=== PATIENT | female | born 1995 | race Caucasian/White ===

== ENCOUNTER 2021-09-27 20:16 | Emergency (ER) | payer OTHER ==
[2021-09-27 20:52] VITALS: BP 114/71; PULSE 107; TEMP 99.4; BMI 27.9
[2021-09-28 01:04] LABS: HCG,QUALITATIVE URINE Negative
[2021-09-28 02:14] LABS: EPI CELLS 4 /uL (0-25.1); HYALINE CASTS 12 /uL (0-3.1); URINE APPEARANCE CLOUDY; URINE BACTERIA 104 /uL (0-1359); URINE BILIRUBIN NEGATIVE (NEGATIVE); URINE COLOR YELLOW; URINE GLUCOSE (UA) NEGATIVE (NEGATIVE); URINE KETONE TRACE (NEGATIVE); URINE LEUK ESTERASE 2+ (NEGATIVE); URINE NITRITE NEGATIVE (NEGATIVE); URINE PROTEIN 1+ (NEGATIVE); URINE RBC 353 /uL (0-23.9); URINE WBC 364 /uL (0-25.8)
== END 2021-09-28 02:07 | disposition home or self-care (01) ==
LOC: JER 20:16
DX: O91.23 Nonpurulent mastitis associated with lactation (principal)
CPT/HCPCS: 81003; 84703; 87086; 87186; 99283-25